=== PATIENT | female | born 1995 | race Caucasian/White ===

== ENCOUNTER 2017-08-12 08:57 | Emergency (ER) | payer SELFPAY ==
[~2017-08-12] VITALS: Ht 162.6 cm; Wt 54.4 kg
[2017-08-12 09:05] VITALS: BP 108/73
[2017-08-12] MEDS ORDERED: ACETAMINOPHEN-1 EAC1 ORAL (10:10)
[2017-08-12] MEDS ORDERED: BACTRIM DS TAB1 EAC1 ORAL (10:10)
[2017-08-12] MEDS ORDERED: KEFLEX500 MG ORAL (10:10)
[2017-08-12] MEDS ORDERED: Bacitracin Oint UD TOPIC ONE (10:15)
[2017-08-12 10:25] VITALS: BP 108/73
--- NOTE | 2017-08-13 06:55 | Emergency Room Report ---
History of Present Illness General Chief Complaint: Skin Rash/Abscess Source: Patient Present Illness HPI 22-year-old female presents ED with pain and swelling to the buttock x2 days. States it is painful to sit. Denies any trauma. Notes redness and swelling. 7 at 10, nonradiating, throbbing. Denies fevers or chills. No other aggravating or leading factors. Denies any other associated symptoms Allergies: Coded Allergies: No Known Allergies (Unverified , 08/12/17) Patient History Past Medical History: none Past Surgical History: none Pertinent Family History: none Social History: Denies: smoking, alcohol use, drug use Now: No Immunizations: UTD Reviewed Nursing Documentation: PMH: Agreed, PSxH: Agreed Nursing Documentation-PMH Past Medical History: No Stated History Review of Systems All Other Systems: negative except mentioned in HPI Physical Exam Vital Signs Date Time Temp Pulse Resp B/P (MAP) Pulse Ox O2 Delivery O2 Flow Rate FiO2 08/12/17 09:03 98.2 80 16 108/73 99 Room Air Sp02 EP Interpretation: reviewed, normal General Appearance: no apparent distress, alert, GCS 15, non-toxic Head: normocephalic Eyes: bilateral eye normal inspection, bilateral eye PERRL ENT: normal ENT inspection Neck: normal inspection Respiratory: normal inspection Cardiovascular #1: normal inspection Gastrointestinal: normal inspection Rectal: deferred Genitourinary: no CVA tenderness Musculoskeletal: normal inspection Neurologic: alert, oriented x3, responsive, motor strength/tone normal, sensory intact, speech normal Psychiatric: judgement/insight normal, memory normal, mood/affect normal, no suicidal/homicidal ideation Skin: other - 2x2cm abscess to R upper buttock. fluctuant/indurated/erythema Lymphatic: normal inspection Procedures Incision and Drainage Incision and Drainage : Consent: Verbal Blade Size: 11 I & D Procedure: betadine prep, sterile drapes applied, sterile dressing applied Wound Location: other - R buttock Wound's Depth, Shape: other - abscess Wound Explored: purulent drainage expressed Anesthesia: 1% Lidocaine Splint Applied?: No Sling Applied?: No Patient Tolerated: Well Complications: None Medical Decision Making Diagnostic Impression: Primary Impression: Pilonidal abscess ER Course Hospital Course 22-year-old female presents to ED with pain and swelling to the right buttock Differential-abscess, cellulitis, dermatitis Clinical course Patient placed on stretcher. After initial history, physical exam reveals a young female in no acute distress. On exam there is evidence of an abscess to the right upper buttock. Consistent with a pilonidal abscess. lidocaine injected. drained without complication. Dressing applied Diagnosis - pilonidal abscess Stable and discharged to home with prescription for Tylenol #3, Bactrim. Keflex. wound Care instructions given. Followup with PMD. Return to ED if any signs of infection develop Last Vital Signs Date Time Temp Pulse Resp B/P (MAP) Pulse Ox O2 Delivery O2 Flow Rate FiO2 08/12/17 10:25 98.2 16 108/73 99 Room Air 08/12/17 09:03 80 Status: improved Disposition: HOME, SELF-CARE Condition: Stable Scripts Acetaminophen With Codeine (T#3) (TYLENOL #3 TAB*) Y Tab 1 TAB ORAL Q8H Y for For Pain, #20 TAB Prov: NANCY PARISH M.D. 08/12/17 Cephalexin* (KEFLEX*) 500 Mg Capsule 500 MG ORAL Q6H, #28 CAP 0 Refills Prov: NANCY PARISH M.D. 08/12/17 Trimethoprim/Sulfamethoxazole 160/800* (BACTRIM DS TABLET*) 1 Each Tablet 1 TAB ORAL Q12H, #14 TAB 0 Refills Prov: NANCY PARISH M.D. 08/12/17 Patient Instructions: Incision and Drainage of a Pilonidal Cyst NANCY PARISH M.D. Aug 13, 2017 06:55
== END 2017-08-12 10:25 | disposition home or self-care (01) ==
LOC: EMR 09:26
DX: L05.01 Pilonidal cyst with abscess (principal)
CPT/HCPCS: 10060; 99284